=== PATIENT | female | born 1985 | race Caucasian/White ===

== ENCOUNTER 2018-06-05 22:26 | Inpatient (IN) | payer SELFPAY ==
[2018-06-06 01:06] LABS: Absolute Lymphocytes (CBC) 3.1 K/uL (0.7-4.9); Absolute Monocytes 0.9 K/uL (0.1-1.3); Absolute Neutrophil 13.8 K/uL (1.8-8.0); Basophils % 0.4 % (0-1.3); Eosinophils % 0.7 % (0-4.4); Hematocrit 40.8 % (36.0-45.0); Lymphocytes % 17.2 % (15.3-44.8); MPV 7.9 fL (7.6-11.3); Monocytes % 5.2 % (3.3-12.3)
[2018-06-06] MEDS ORDERED: NA CHLORIDE 0.9% 1,000 ML ONE ×2 (01:07→02:33)
[2018-06-06 01:27] LABS: Potassium 3.3 mmol/L (3.5-5.1)
[2018-06-06 01:48] LABS: Thyroid Stimulating Hormone 3.85 uIU/mL (0.360-3.740)
[2018-06-06] MEDS ORDERED: predniSONE 20 MG TAB ONE (02:33)
[2018-06-06] MEDS ORDERED: DIPHENHYDRAMINE 50 MG/ML VIAL ONE (02:33)
[2018-06-06 03:42] LABS: Urine Blood NEGATIVE (NEG); Urine Glucose NEGATIVE (NEG); Urine Protein 1+ (NEG); Urine Specific Gravity 1.025 (1.005-1.030); Urine pH 5.5 (5.0-7.0)
[2018-06-06 04:09] LABS: Urine Bacteria 20-50 /HPF (<20); Urine Culture Reflex Order REFLEXED; Urine RBC <5 /HPF (NONE SEEN)
[2018-06-06] MEDS ORDERED: MORPHINE 2 MG/ML SYR IV PRN (04:35)
[2018-06-06] MEDS ORDERED: ONDANSETRON 4 MG/2 ML VIAL IV PRN (04:35)
[2018-06-06] MEDS ORDERED: ACETAMINOPHEN 500 MG TAB PO PRN (04:35)
[2018-06-06] MEDS ORDERED: NA CHLORIDE 0.9% 500 ML IV ONE ×2 (04:39→13:15)
--- NOTE | 2018-06-06 04:45 | ER ---
Nurse's Notes [facility] Name: Lore Nunez Age: 32 yrs Sex: Female : 1985 Arrival Date: 06/05/2018 Time: 22:31 Bed 20 Private MD: Diagnosis: Tachycardia, unspecified Presentation: 06/05 22:47 Presenting complaint: Patient states: she went to the [facility] urgent care for hives and aa1 sore throat and they told her that she needed to come to the ED because her BP was 155/80. Pulse in triage 148. NAD noted. Reports she has also had swelling in her feet and feels like she can't catch her breath. Transition of care: patient was not received from another setting of care. Onset of symptoms was June 02, 2018. Risk Assessment: Do you want to hurt yourself or someone else? Patient reports no desire to harm self or others. Initial Sepsis Screen: Does the patient meet any 2 criteria? HR > 90 bpm. Does the patient have a suspected source of infection? No. Patient's initial sepsis screen is negative. Care prior to arrival: None. 22:47 Method Of Arrival: Ambulatory aa1 22:47 Acuity: KISHA 2 aa1 Triage Assessment: 22:49 General: Appears in no apparent distress. comfortable, Behavior is calm, cooperative, aa1 appropriate for age. 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 - Social history:: Smoking status: Patient uses tobacco products, smokes one-half pack cigarettes per day. - Ebola Screening: : Patient denies exposure to infectious person Patient denies travel to an Ebola-affected area in the 21 days before illness onset. Screenin:16 Abuse screen: Denies threats or abuse. Denies injuries from another. Nutritional rv screening: No deficits noted. Tuberculosis screening: No symptoms or risk factors identified. Fall Risk None identified. Assessment: 23:15 General: Appears in no apparent distress. comfortable, Behavior is calm, cooperative. rv Pain: Denies pain. Neuro: Level of Consciousness is awake, alert, obeys commands, Oriented to person, place, time, situation. Cardiovascular: Capillary refill < 3 seconds. Respiratory: Airway is patent Respiratory effort is even, Breath sounds are clear bilaterally. GI: No signs and/or symptoms were reported involving the gastrointestinal system. : No signs and/or symptoms were reported regarding the genitourinary system. EENT: Throat is clear. Derm: Skin is intact, Rash noted that is. Musculoskeletal: No signs and/or symptoms reported regarding the musculoskeletal system. 06/06 01:59 Reassessment: Patient appears in no apparent distress at this time. Patient and/or rv family updated on plan of care and expected duration. Pain level reassessed. Patient is alert, oriented x 3, equal unlabored respirations, skin warm/dry/pink. Patient states feeling better. 03:23 Reassessment: Patient appears in no apparent distress at this time. Patient and/or jb4 family updated on plan of care and expected duration. Pain level reassessed. Patient is alert, oriented x 3, equal unlabored respirations, skin warm/dry/pink. 04:21 Reassessment: Patient appears in no apparent distress at this time. Patient and/or jb4 family updated on plan of care and expected duration. Pain level reassessed. Patient is alert, oriented x 3, equal unlabored respirations, skin warm/dry/pink. Dr. Juarez at the bedside. 05:30 Reassessment: Patient appears in no apparent distress at this time. Patient and/or jb4 family updated on plan of care and expected duration. Pain level reassessed. Patient is alert, oriented x 3, equal unlabored respirations, skin warm/dry/pink. Vital Signs: 06/05 22:49 BP 126 / 88; Pulse 148; Resp 20; Temp 97.2; Pulse Ox 100% on R/A; Weight 115.21 kg; aa1 Height 5 ft. 9 in. (175.26 cm); 23:30 BP 120 / 49 LA; Pulse 94; Resp 19 S; Pulse Ox 100% on R/A; rv 06/06 00:30 BP 121 / 90 LA; Pulse 122; Resp 19 S; Pulse Ox 98% on R/A; rv 01:00 BP 116 / 98 LA; Pulse 118; Resp 21 S; Pulse Ox 100% on R/A; rv 01:30 BP 114 / 89 LA; Pulse 115; Resp 17 S; Pulse Ox 100% on R/A; rv 03:15 BP 138 / 92; Pulse 111; Resp 19; Pulse Ox 100% on R/A; jb4 04:00 BP 120 / 63; Pulse 104; Resp 16; Pulse Ox 98% on R/A; jb4 05:40 BP 112 / 64; Pulse 99; Resp 18 S; Pulse Ox 98% on R/A; jb4 06/05 22:49 Body Mass Index 37.51 (115.21 kg, 175.26 cm) aa1 ED Course: 06/05 22:31 Patient arrived in ED. es 22:49 Triage completed. aa1 22:49 Arm band placed on right wrist. aa1 23:16 Patient has correct armband on for positive identification. Bed in low position. Call rv light in reach. Side rails up X 1. Adult w/ patient. Pulse ox on. NIBP on. 06/06 00:02 Dimitrios Jensen MD is Attending Physician. gs 00:50 Inserted saline lock: 22 gauge in right antecubital area, using aseptic technique. rv Blood collected. 00:57 Strep Sent. rv 00:57 TSH Sent. rv 00:57 Basic Metabolic Panel Sent. rv 00:57 CBC with Diff Sent. rv 02:46 Patient moved to radiology via wheelchair. kw 02:46 X-ray completed. Patient tolerated procedure well. kw 02:46 Patient moved back from radiology. kw 02:47 XRAY Chest Pa And Lat (2 Views) In Process Unspecified. EDMS 03:07 Cody Hood RN is Primary Nurse. jb4 04:43 Jess Juarez MD is Hospitalizing Provider. gs 06:03 No provider procedures requiring assistance completed. Patient admitted, IV remains in jb4 place. Administered Medications: 00:57 Drug: NS 0.9% 1000 ml Route: IV; Rate: 1 bolus; Site: right antecubital; rv 01:57 Follow up: IV Status: Completed infusion rv 02:29 Drug: Benadryl 12.5 mg Route: IVP; Site: right antecubital; rv 02:29 Drug: predniSONE 40 mg Route: PO; rv 02:29 Drug: NS 0.9% 1000 ml Route: IV; Rate: 1 bolus; Site: right antecubital; rv 03:10 Follow up: Response: No adverse reaction; IV Status: Completed infusion; IV Intake: jb4 1000ml Intake: 03:10 IV: 1000ml; Total: 1000ml. jb4 Outcome: 04:44 Decision to Hospitalize by Provider. gs 06:03 Admitted to Med/surg accompanied by nurse, via wheelchair, room 211, with chart, Report jb4 called to MARIE Nguyen 06:03 Condition: stable 06:03 Discharge instructions given to patient, family, Instructed on the need for admit, Demonstrated understanding of instructions. 06:10 Patient left the ED. jb4 Signatures: Dispatcher [employer] Ashlee Hemphill RN RN aa1 Sol Maza Kimberlee kw Bryson, James, RN RN jb4 Dimitrios Jensen MD MD gs Vicente, Ronaldo, RN RN rv Corrections: (The following items were deleted from the chart) 06/05 22:51 22:47 Presenting complaint: Patient states: she went to the [facility] urgent care for hives aa1 and sore throat and they told her that she needed to come to the ED because her BP was 155/80. Pulse in triage 148. NAD noted aa1 06/06 02:46 02:46 X-ray completed. Portable x-ray completed in exam room. Patient tolerated kw procedure well. kw 04:27 04:21 Reassessment: Patient appears in no apparent distress at this time. Patient jb4 and/or family updated on plan of care and expected duration. Pain level reassessed. Patient is alert, oriented x 3, equal unlabored respirations, skin warm/dry/pink. jb4
--- NOTE | 2018-06-06 04:45 | EDPHYS ---
Physician Documentation [facility] Name: Lore Nunez Age: 32 yrs Sex: Female : 1985 Arrival Date: 06/05/2018 Time: 22:31 Bed 20 Private MD: ED Physician Dimitrios Jensen HPI: 06/06 05:30 This 32 yrs old Female presents to ER via Ambulatory with complaints of Sore gs Throat, Hives, High Blood Pressure. 05:30 The patient presents with sore throat. Onset: The symptoms/episode began/occurred 2 gs day(s) ago. Severity of symptoms: At their worst the symptoms were moderate, in the emergency department the symptoms are unchanged. Modifying factors: The symptoms are alleviated by nothing, the symptoms are aggravated by foods. Associated signs and symptoms: Pertinent positives: RASH, Pertinent negatives chills, fever. The patient has not experienced similar symptoms in the past. The patient has not recently seen a physician. 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 - Social history:: Smoking status: Patient uses tobacco products, smokes one-half pack cigarettes per day. - Ebola Screening: : Patient denies exposure to infectious person Patient denies travel to an Ebola-affected area in the 21 days before illness onset. ROS: 06/06 05:30 All other systems are negative. gs Exam: 05:30 Head/Face: Normocephalic, atraumatic. Eyes: Pupils equal round and reactive to light, gs extra-ocular motions intact. Lids and lashes normal. Conjunctiva and sclera are non-icteric and not injected. Cornea within normal limits. Periorbital areas with no swelling, redness, or edema. Neck: Trachea midline, no thyromegaly or masses palpated, and no cervical lymphadenopathy. Supple, full range of motion without nuchal rigidity, or vertebral point tenderness. No Meningismus. Chest/axilla: Normal chest wall appearance and motion. Nontender with no deformity. No lesions are appreciated. 05:30 Respiratory: Lungs have equal breath sounds bilaterally, clear to auscultation and percussion. No rales, rhonchi or wheezes noted. No increased work of breathing, no retractions or nasal flaring. Abdomen/GI: Soft, non-tender, with normal bowel sounds. No distension or tympany. No guarding or rebound. No evidence of tenderness throughout. Back: No spinal tenderness. No costovertebral tenderness. Full range of motion. MS/ Extremity: Pulses equal, no cyanosis. Neurovascular intact. Full, normal range of motion. Neuro: Awake and alert, GCS 15, oriented to person, place, time, and situation. Cranial nerves II-XII grossly intact. Motor strength 5/5 in all extremities. Sensory grossly intact. Cerebellar exam normal. Normal gait. 05:30 Constitutional: The patient appears alert, awake, in obvious distress, severely distressed. 05:30 ENT: Posterior pharynx: erythema, that is moderate, exudate, that is moderate. 05:30 Cardiovascular: Rate: tachycardic, actual rate is 140 bpm, Rhythm: regular, Pulses: no pulse deficits are appreciated. 05:30 Skin: rash a moderate rash is noted, rash can be described as excoriated, urticarial, on the back, right leg and left leg. 06:10 ECG was reviewed by the Attending Physician. Vital Signs: 06/05 22:49 BP 126 / 88; Pulse 148; Resp 20; Temp 97.2; Pulse Ox 100% on R/A; Weight 115.21 kg; aa1 Height 5 ft. 9 in. (175.26 cm); 23:30 BP 120 / 49 LA; Pulse 94; Resp 19 S; Pulse Ox 100% on R/A; rv 06/06 00:30 BP 121 / 90 LA; Pulse 122; Resp 19 S; Pulse Ox 98% on R/A; rv 01:00 BP 116 / 98 LA; Pulse 118; Resp 21 S; Pulse Ox 100% on R/A; rv 01:30 BP 114 / 89 LA; Pulse 115; Resp 17 S; Pulse Ox 100% on R/A; rv 03:15 BP 138 / 92; Pulse 111; Resp 19; Pulse Ox 100% on R/A; jb4 04:00 BP 120 / 63; Pulse 104; Resp 16; Pulse Ox 98% on R/A; jb4 05:40 BP 112 / 64; Pulse 99; Resp 18 S; Pulse Ox 98% on R/A; jb4 06/05 22:49 Body Mass Index 37.51 (115.21 kg, 175.26 cm) [facility] MDM: 00:38 Patient medically screened. 05:30 Differential diagnosis: HIVES, STREP PHARYNGITIS, VIRAL INFECTION, HYPERTHYOIDISM. Data gs reviewed: vital signs, nurses notes. Counseling: I had a detailed discussion with the patient and/or guardian regarding: the historical points, exam findings, and any diagnostic results supporting the discharge/admit diagnosis, lab results, radiology results, the need for further work-up and treatment in the hospital. Response to treatment: the patient's symptoms have markedly improved after treatment, and as a result, I will discharge patient. ED course: WILL OBS, UNEXPLAINED TACHYCARDIA ALTHOUGH DID IMPROVE WITH FLUIDS. im AGREES WITH PLAN. 06/06 00:41 Order name: CBC with Diff; Complete Time: 02:12 06/06 00:41 Order name: Basic Metabolic Panel; Complete Time: 02:12 06/06 00:41 Order name: TSH; Complete Time: 02:12 06/06 00:41 Order name: Strep; Complete Time: 02:12 06/06 01:48 Order name: T4 Free; Complete Time: 02:12 [facility] 06/06 02:07 Order name: Throat Culture [facility] 06/06 02:28 Order name: Urine Microscopic Only; Complete Time: 04:41 06/06 02:41 Order name: [place] Screen Profile; Complete Time: 04:41 06/06 03:13 Order name: Urine Dipstick--Ancillary (enter results); Complete Time: 04:41 [facility] 06/06 03:13 Order name: Urine --Ancillary (enter results); Complete Time: 04:41 [facility] 06/06 04:10 Order name: Urine Culture [facility] 06/06 04:40 Order name: CBC with Automated Diff [facility] 06/06 04:40 Order name: CBC with Automated Diff [facility] 06/06 04:40 Order name: Comprehensive Metabolic Panel [facility] 06/05 23:07 Order name: EKG; Complete Time: 23:08 [facility] 06/05 23:07 Order name: EKG - Nurse/Tech; Complete Time: 23:22 [facility] 06/06 02:28 Order name: XRAY Chest Pa And Lat (2 Views) 06/06 02:28 Order name: Urine Test (obtain specimen); Complete Time: 03:10 06/06 02:28 Order name: Urine Dipstick-Ancillary (obtain specimen); Complete Time: 03:10 06/06 04:40 Order name: CONS Pharmacy Consult [facility] 06/06 04:40 Order name: Regular [facility] 06/06 04:40 Order name: Comprehensive Metabolic Panel [facility] 06/06 04:42 Order name: Blood Culture* gs EC:10 Rate is 135 beats/min. Rhythm is regular, Sinus tachycardia. FL interval is normal. QRS gs interval is normal. T waves are Normal. No ST changes noted. Clinical impression: Abnormal EKG without significant change. Interpreted by me. Administered Medications: 00:57 Drug: NS 0.9% 1000 ml Route: IV; Rate: 1 bolus; Site: right antecubital; rv 01:57 Follow up: IV Status: Completed infusion rv 02:29 Drug: Benadryl 12.5 mg Route: IVP; Site: right antecubital; rv 02:29 Drug: predniSONE 40 mg Route: PO; rv 02:29 Drug: NS 0.9% 1000 ml Route: IV; Rate: 1 bolus; Site: right antecubital; rv 03:10 Follow up: Response: No adverse reaction; IV Status: Completed infusion; IV Intake: jb4 1000ml Disposition: 06/06/18 04:44 Hospitalization ordered by Jess Juarez for Observation. Preliminary diagnosis is Tachycardia, unspecified. - Bed requested for Telemetry/MedSurg (observation). - Status is Observation. jb4 - Condition is Stable. - Problem is chronic. - Symptoms have improved. UTI on Admission? No Critical care time excluding procedures: 05:30 Critical care time: Bedside Care: 10 minutes, Consultation: 10 minutes, Family Intervention: 10 minutes. Total time: 30 minutes Signatures: Dispatcher [employer] [facility] Hermila León RN MARIE Aslhee Cohen RN RN aa1 Cody Hood RN RN jb4 Dimitrios Jensen MD MD Curt Daugherty RN RN rv Corrections: (The following items were deleted from the chart) 05:30 04:44 Hospitalization Ordered by Jess Juarez MD for Observation. Preliminary mw diagnosis is Tachycardia, unspecified. Bed requested for Telemetry/MedSurg (observation). Status is Observation. Condition is Stable. Problem is chronic. Symptoms have improved. UTI on Admission? No. gs 06:10 05:30 06/06/2018 04:44 Hospitalization Ordered by Jess Juarez MD for Observation. jb4 Preliminary diagnosis is Tachycardia, unspecified. Bed requested for Telemetry/MedSurg (observation). Status is Observation. Condition is Stable. Problem is chronic. Symptoms have improved. UTI on Admission? No. mw
--- NOTE | 2018-06-06 05:58 | EKG ---
Test Date: 2018-06-05 Test Time: 23:12:07 Boom Stick Man: ROBERT MEASUREMENT RESULTS: Intervals: Rate: 135 OK: 116 QRSD: 76 QT: 292 QTc: 438 [place]: P: 20 OK: 116 QRS: 14 T: 38 INTERPRETIVE STATEMENTS: Sinus tachycardia Otherwise normal ECG No previous ECG available for comparison Electronically Signed On 06-06-18 05:58:00 CDT by Abel Mills
[2018-06-06] MEDS ORDERED: PIPER/TAZO/NS 3.375gm 3.375 GM/100 ML BAG IVPB SCH ×2 (06:00→09:00)
[2018-06-06 06:20] VITALS: BMI 37.9
[2018-06-06] MEDS: NA CHLORIDE 0.9% 1,000 ML IV SCH ×3 (06:30→22:41)
[2018-06-06] MEDS: HYDROCORTISONE SUC 100 MG INJ IV SCH ×2 (06:30→09:46)
[2018-06-06 08:00] LABS: Barbiturates NEGATIVE (NEGATIVE); Benzodiazepines NEGATIVE (NEGATIVE); Cocaine NEGATIVE (NEGATIVE); METHAMPHETAM NEGATIVE (NEGATIVE); Methadone NEGATIVE (NEGATIVE); Opiates NEGATIVE (NEGATIVE); Phencyclidine NEGATIVE (NEGATIVE); THC Cannibis NEGATIVE (NEGATIVE)
[2018-06-06] MEDS ORDERED: INFLUENZA VACCINE (for 3y+) 0.5 ML DOSE IMVAC ONE (08:00)
--- NOTE | 2018-06-06 08:23 | RAD REPORT ---
EXAM DESCRIPTION: Anastasia Chavis (2 Views)06/06/2018 2:49 am CLINICAL HISTORY: Cough COMPARISON: None FINDINGS: The lungs appear clear of acute infiltrate. The heart is normal size IMPRESSION: No acute abnormalities displayed
--- NOTE | 2018-06-06 10:12 | P.HP ---
Certification for Inpatient Patient admitted to: Observation With expected LOS: <2 Midnights Patient will require the following post-hospital care: None Practitioner: I am a practitioner with admitting privileges, knowledge of patient current condition, hospital course, and medical plan of care. Services: Services provided to patient in accordance with Admission requirements found in Title 42 Section 412.3 of the Code of Federal Regulations Patient History Date of Service: 06/06/18 Reason for admission: Systemic inflammatory response syndrome History of Present Illness: Patient is a 32-year-old female who came to the hospital because she was feeling very poorly for the last 3 days. She has had generalized weakness with of sore throat as well as a diffuse body rash. In the emergency room she was tachycardic with a heart rate in the 140s. Her blood pressure was 90/50. She has been having shakes and chills. Her white count was greater than 15,000. She also has very poor dentition. She has multiple dental caries and has been found have dental abscesses in the recent past. At this time she will be admitted to the hospital for further workup of her systemic inflammatory response syndrome. Allergies No Known Allergies Allergy (Verified 06/06/18 05:52) Home Medications: NK [No Home Meds] 06/06/18 - Past Medical/Surgical History Has patient received pneumonia vaccine in the past: No Diabetic: No Past Medical History: Patient denies medical history Past Surgical History: Patient denies surgical history - Family History Father Family History: Reviewed- Non-Contributory - Social History Smoking Status: Current every day smoker Alcohol use: No CD- Drugs: No Caffeine use: Yes Place of Residence: Home Review of Systems 10-point ROS is otherwise unremarkable Physical Examination - Vital Signs Temperature: 98 F Blood Pressure: 123/66 Pulse: 108 Respirations: 18 Pulse Ox (%): 96 - Physical Exam General: Alert, In no apparent distress, Oriented x3 HEENT: Atraumatic, PERRLA, Mucous membr. moist/pink, EOMI, Sclerae nonicteric Neck: Supple, 2+ carotid pulse no bruit, No LAD, Without JVD or thyroid abnormality Respiratory: Clear to auscultation bilaterally, Normal air movement Cardiovascular: Regular rate/rhythm, Normal S1 S2, No murmurs Gastrointestinal: Normal bowel sounds, Soft and benign, Non-distended, No tenderness Musculoskeletal: No clubbing, No swelling, No tenderness Integumentary: No rashes Neurological: Normal gait, Normal speech, Normal strength at 5/5 x4 extr, Normal tone, Sensation intact, Cranial nerves 3-12 intact, Normal affect Lymphatics: No axilla or inguinal lymphadenopathy - Studies Laboratory Data (last 24 hrs) 06/06/18 00:50: Sodium 136, Potassium 3.3 L, BUN 11, Creatinine 0.89, Glucose 119 H 06/06/18 00:50: WBC 18.0 H, Hgb 14.0, Hct 40.8, Plt Count 499 H Microbiology Data (last 24 hrs): 06/06/18 00:50 Throat Group A Streptococcus Rapid Screen - Final Assessment & Plan - Problems (Diagnosis) (1) Systemic inflammatory response syndrome Current Visit: Yes Status: Acute (2) Rash Current Visit: Yes Status: Acute (3) Fever Current Visit: Yes Status: Acute (4) Pharyngitis Current Visit: Yes Status: Acute (5) Viral exanthem Current Visit: Yes Status: Acute - Plan Plan: 1. IV hydration 2. IV antibiotics 3. Pain control 4. IV Benadryl/steroids 5. Monitor hemodynamics very closely 6. GI and DVT prophylaxis Discharge Plan: Home Plan to discharge in: 48 Hours - Advance Directives Does patient have a Living Will: No Does patient have a Durable POA for Healthcare: No - Code Status/Comfort Care Code Status Assessed: Yes Code Status: Full Code Critical Care: No Time Spent Managing PTS Care (In Minutes): 45
--- NOTE | 2018-06-06 10:49 | ECHO ---
HEIGHT: 5 ft 9 in WEIGHT: 257 lb 0 oz DATE OF STUDY: 06/06/[address]: Jess Juarez MD 2-DIMENSIONAL: YES M.MODE: YES DOPPLER: YES COLOR FLOW: YES TDS: YES PORTABLE: NO DEFINITY: NO BUBBLE STUDY: NO DIAGNOSIS: ENDOCARDITIS CARDIAC HISTORY: CATHERIZATION: NO SURGERY: NO PROSTHETIC VALVE: NO PACEMAKER: NO MEASUREMENTS (cm) DIASTOLIC (NORMALS) SYSTOLIC (NORMALS) IVSd 1.0 (0.6-1.2) LA Diam 3.2 (1.9-4.0) LVEF 78% LVIDd 4.5 (3.5-5.7) LVIDs 2.4 (2.0-3.5) %FS 46% LVPWd 1.0 (0.6-1.2) Ao Diam 2.9 (2.0-3.7) 2 DIMENSIONAL ASSESSMENT: RIGHT ATRIUM: NORMAL LEFT ATRIUM: NORMAL RIGHT VENTRICLE: NORMAL LEFT VENTRICLE: NORMAL TRICUSPID VALVE: NORMAL MITRAL VALVE: NORMAL PULMONIC VALVE: NORMAL AORTIC VALVE: NORMAL PERICARDIAL EFFUSION: NONE AORTIC ROOT: NORMAL LEFT VENTRICULAR WALL MOTION: NORMAL DOPPLER/COLOR FLOW: NORMAL COMMENTS: NORMAL 2D ECHOCARDIOGRAM WITH DOPPLER. TECHNICALLY DIFFICULT STUDY. TECHNOLOGIST: Chery DILL
[2018-06-06] MEDS: CEFTRIAXONE/SWI 1gm 1 GM/10 ML SYR IV SCH (11:05)
[2018-06-06] MEDS ORDERED: NA CHLORIDE 0.9% 250 ML IV ONE (18:00)
[2018-06-06 21:07] LABS: Magnesium 1.9 mg/dL (1.8-2.4); Potassium 3.2 mmol/L (3.5-5.1)
[2018-06-06] MEDS ORDERED: POTASSIUM 25 MEQ EFFERV TAB PO ONE (21:50)
[2018-06-06] MEDS: predniSONE 10 MG TAB PO SCH (22:16)
[2018-06-07] MEDS: NA CHLORIDE 0.9% 1,000 ML IV SCH ×3 (01:00→20:13)
[2018-06-07] MEDS ORDERED: LORazepam 2 MG/ML VIAL IV ONE (01:22)
[2018-06-07] MEDS ORDERED: DIPHENHYDRAMINE 25 MG TAB/CAP PO ONE (01:24)
[2018-06-07 06:05] LABS: Absolute Lymphocytes (CBC) 2.2 K/uL (0.7-4.9); Absolute Monocytes 0.6 K/uL (0.1-1.3); Basophils % 0.6 % (0-1.3); Eosinophils % 0.2 % (0-4.4); Lymphocytes % 18.6 % (15.3-44.8); MPV 7.7 fL (7.6-11.3); RBC Red Blood Cell Count 3.49 M/uL (3.86-4.86)
[2018-06-07 06:25] LABS: ALT/SGPT 20 U/L (12-78); AST/SGOT 16 U/L (15-37); Albumin 2.9 g/dL (3.4-5.0); Alkaline Phosphatase 57 U/L (45-117); BUN Blood Urea Nitrogen 6 mg/dL (7-18); Bicarbonate 24 mmol/L (21-32); Bilirubin Total 0.4 mg/dL (0.2-1.0); Glucose Level 101 mg/dL (74-106); Potassium 3.5 mmol/L (3.5-5.1); Protein, Total 6.1 g/dL (6.4-8.2); Sodium Level 139 mmol/L (136-145)
[2018-06-07] MEDS: predniSONE 10 MG TAB PO SCH ×2 (08:55→20:13)
[2018-06-07] MEDS: CEFTRIAXONE/SWI 1gm 1 GM/10 ML SYR IV SCH (08:56)
[2018-06-07] MEDS ORDERED: POTASSIUM CL SA 10 MEQ TAB PO ONE (09:00)
[2018-06-07] MEDS ORDERED: DIPHENHYDRAMINE 25 MG TAB/CAP PO PRN (09:42)
--- NOTE | 2018-06-07 13:13 | P.PN ---
Subjective Date of Service: 06/07/18 Chief Complaint: Systemic inflammatory response syndrome Subjective: No new changes, No C/O voiced, Tolerating diet, Ambulating, Improving Review of Systems 10-point ROS is otherwise unremarkable Physical Examination - Vital Signs Temperature: 98.8 F Blood Pressure: 129/59 Pulse: 108 Respirations: 20 Pulse Ox (%): 95 - Physical Exam General: Alert, In no apparent distress HEENT: Atraumatic, PERRLA, EOMI Neck: Supple, JVD not distended Respiratory: Clear to auscultation bilaterally, Normal air movement Cardiovascular: Regular rate/rhythm, Normal S1 S2 Gastrointestinal: Normal bowel sounds, No tenderness Musculoskeletal: No tenderness Integumentary: Rash(es) (Macupapular Rash throughout the body. improving today ) Neurological: Normal speech, Normal tone, Normal affect Lymphatics: No axilla or inguinal lymphadenopathy - Studies Laboratory Data (last 24 hrs) 06/07/18 05:46: Sodium 139, Potassium 3.5, BUN 6 L, Creatinine 0.54 L, Glucose 101, Total Bilirubin 0.4, AST 16, ALT 20, Alkaline Phosphatase 57 06/07/18 05:46: WBC 12.0 H D, Hgb 10.0 L D, Hct 29.0 L D, Plt Count 340 D 06/06/18 23:12: Potassium 3.5 06/06/18 20:44: Potassium 3.2 L, Magnesium 1.9 Microbiology Data (last 24 hrs): 06/06/18 00:50 Throat Culture & Sensitivity - Final NORMAL UPPER RESPIRATORY JULIAN GROWN. Medications List Reviewed: Yes Assessment And Plan - Current Problems (Diagnosis) (1) Sepsis Current Visit: Yes Status: Acute Plan: Possible Sepsis with UTI vs viral Illness -IV fluids and IV rocephin -Blood culture pending -urine culture with mixed julian however collected post abx. Can be contaminated -Will continue abx and f.u with Blood culture Qualifiers: Sepsis type: sepsis due to unspecified organism Qualified Code(s): A41.9 - Sepsis, unspecified organism (2) Rash Current Visit: Yes Status: Acute Plan: Rash most likely 2.2 to allergic reaction vs viral Exathem -Benadryl and Steriods for allergic reaction - Plan Pending Clinical Improvement. F.u with Blood culture - Code Status/Comfort Care Code Status Assessed: Yes Critical Care: No
[2018-06-08] MEDS ORDERED: DIPHENHYDRAMINE 25 MG TAB/CAP PO PRN (00:13)
[2018-06-08 02:23] VITALS: O2SAT 97
[2018-06-08] MEDS: NA CHLORIDE 0.9% 1,000 ML IV SCH (05:26)
[2018-06-08 05:31] LABS: BUN Blood Urea Nitrogen 7 mg/dL (7-18); Bicarbonate 25 mmol/L (21-32); Glucose Level 101 mg/dL (74-106); Potassium 3.4 mmol/L (3.5-5.1); Sodium Level 140 mmol/L (136-145)
[2018-06-08] MEDS ORDERED: POTASSIUM 25 MEQ EFFERV TAB PO ONE (06:02)
[2018-06-08] MEDS: CEFTRIAXONE/SWI 1gm 1 GM/10 ML SYR IV SCH (09:29)
[2018-06-08] MEDS: predniSONE 10 MG TAB PO SCH (09:29)
--- NOTE | 2018-06-08 11:33 | P.DS ---
Admission Date: 06/07/18 Discharge Date: 06/08/18 Disposition: ROUTINE DISCHARGE Discharge Condition: GOOD Reason for Admission: Systemic inflammatory response syndrome Consultations: Non - Problems (1) Sepsis Current Visit: Yes Status: Acute Qualifiers: Sepsis type: sepsis due to unspecified organism Qualified Code(s): A41.9 - Sepsis, unspecified organism (2) Rash Current Visit: Yes Status: Acute Brief History of Present Illness: See HPI Hospital Course: Overall during the hospital stay patient remained stable Patient was initially admitted to the hospital after having would seem like to allergic reaction along with fever chills and tachycardia. Patient had some shrimp that she ate after which she started noticing that she was having difficulty swallowing along with upper lip swelling. Patient was started on hydrocortisone here in the hospital and had marked improvement in her symptoms. Patient also started noticing that she has hives that started 5 days before her breathing difficulty. Patient was given Benadryl for the symptoms and had marked improvement in her rash. patient's urine culture was also collected. Concerning for UTI. Patient was started on Rocephin. Urine culture was consistent with mixed julian however pump high possibility of false negative due to antibiotics pain started before the urine culture was collected. Patient thus discharged home once her symptoms resolved on doxycycline, Benadryl and prednisone. Patient was asked to follow up with primary care provider in about 1-2 days post discharge. Patient's symptoms were consistent with sepsis an allergic reaction to possibly shrimp that she had. Vital Signs/Physical Exam: Temp Pulse Resp BP Pulse Ox 97.5 F 87 18 117/62 96 06/08/18 04:00 06/08/18 04:00 06/08/18 04:00 06/08/18 04:00 06/08/18 04:00 General: Alert, In no apparent distress HEENT: Atraumatic, PERRLA, EOMI Neck: Supple, JVD not distended Respiratory: Clear to auscultation bilaterally, Normal air movement Cardiovascular: Regular rate/rhythm, Normal S1 S2 Gastrointestinal: Normal bowel sounds, No tenderness Musculoskeletal: No tenderness Integumentary: No rashes Neurological: Normal speech, Normal tone, Normal affect Lymphatics: No axilla or inguinal lymphadenopathy Laboratory Data at Discharge: WBC 12.0 K/uL (4.3-10.9) H D 06/07/18 05:46 Hgb 10.0 g/dL (12.0-15.0) L D 06/07/18 05:46 Hct 29.0 % (36.0-45.0) L D 06/07/18 05:46 Plt Count 340 K/uL (152-406) D 06/07/18 05:46 Sodium 140 mmol/L (136-145) 06/08/18 05:04 Potassium 3.4 mmol/L (3.5-5.1) L 06/08/18 05:04 BUN 7 mg/dL (7-18) 06/08/18 05:04 Creatinine 0.52 mg/dL (0.55-1.3) L 06/08/18 05:04 Glucose 101 mg/dL (74-106) 06/08/18 05:04 Magnesium 1.9 mg/dL (1.8-2.4) 06/06/18 20:44 Total Bilirubin 0.4 mg/dL (0.2-1.0) 06/07/18 05:46 AST 16 U/L (15-37) 06/07/18 05:46 ALT 20 U/L (12-78) 06/07/18 05:46 Alkaline Phosphatase 57 U/L (45-117) 06/07/18 05:46 Home Medications: Diphenhydramine [Benadryl*] 25 mg PO Q6H PRN #30 tab 06/08/18 Doxycycline Hyclate 100 mg PO BID #10 capsule 06/08/18 predniSONE [Deltasone*] 10 mg PO DAILY #3 tab 06/08/18 New Medications: Diphenhydramine [Benadryl*] 25 mg PO Q6H PRN #30 tab PRN Reason: Itching Doxycycline Hyclate 100 mg PO BID #10 capsule predniSONE [Deltasone*] 10 mg PO DAILY #3 tab Patient Discharge Instructions: Please f.u with PCP in 1 to 2 days post discharge. New medication. Prednisone 10mg Daily for 3 days. Benadryl q6h PRN for 3 days. doxycycline 100mg BID for 5 days Diet: Regular Activity: Ad kb
[2018-06-08 13:06] VITALS: BP 128/81
[2018-06-08 13:07] VITALS: TEMP 97.3
[2018-06-10 09:41] LABS: HIV AG/AB 4TH GEN Non-reactive (Non-reactive)
[2018-06-13 04:16] LABS: HBsAG Nonreactive (Nonreactive); Hepatitis A IgM Antibody Nonreactive
== END 2018-06-08 12:16 | disposition home or self-care (01) | DRG 872 ==
LOC: ER 22:26 → ERHOLD 06-06 04:36 → 2ND 06-06 05:59 → OBSVTOIN 06-07 10:19
PROVIDERS: ADMIT Hospitalist; ATTEND Family Medicine
DX: A41.9 Sepsis, unspecified organism (principal); N39.0 Urinary tract infection, site not specified; K04.7 Periapical abscess without sinus; F17.210 Nicotine dependence, cigarettes, uncomplicated; J02.9 Acute pharyngitis, unspecified; L27.2 Dermatitis due to ingested food
CPT/HCPCS: 36415; 71046; 80048; 80053; 80074; 80307; 81003; 81015; 81025; 83605; 83735; 84132; 84145; 84439; 84443; 85025; 86308; 87040; 87070; 87081; 87086; 87088; 87389; 93005; 93306; 94760; 96361; 96374; 99285; G0378; J0696; J1720; J2543; J7030; J7512